=== PATIENT | female | born 1955 | race Caucasian/White ===

== ENCOUNTER 2020-06-07 18:06 | Emergency (ER) | payer OTHER ==
[~2020-06-07] VITALS: Ht 162.6 cm; Wt 63.5 kg
--- NOTE | 2020-06-07 18:15 | NUR ---
PATIENT WHEELCHAIR ASSISTED TO BED 09
--- NOTE | 2020-06-07 18:20 | NUR ---
BP 191/93. DR. SANTOYO MADE AWARE
--- NOTE | 2020-06-07 18:20 | NUR ---
64 Y/O FEMALE BIB SELF C/O LEFT SIDE FACE TINGLING/NUMBNESS AND INABILITY TO PROPERLY SWALLOW X 30 MINUTES. SLIGHT LEFT SIDE FACIAL DROOPING NOTED, SYMMETRICAL BILATERAL STRENGTH NOTED, CLEAR SPEECH. STATES NAUSEA/VOMITING/DIZZINESS. SPO2 99% RA, CLEAR LUNG SOUNDS THROUGHOUT, BREATHING EVEN AND UNLABORED, CLEAR TRACHEAL BREATH SOUNDS. PT CONNECTED TO MONITOR. AO4, SKIN WARM AND DRY. BED IN LOWEST POSITION, LOCKED, X 1 SIDERAIL UP. PMH - RH. ARTHRITIS NKA
--- NOTE | 2020-06-07 18:33 | NUR ---
PT VOMITING AT BEDSIDE
[2020-06-07 18:34] VITALS: BP 191/93
[2020-06-07] MEDS ORDERED: KETOROLAC 30 MG/ML VIAL IVP ONE (18:50)
[2020-06-07] MEDS ORDERED: METOCLOPRAMIDE 10 MG/2 ML INJ VIAL IVP ONE (18:50)
[2020-06-07] MEDS ORDERED: NACL 0.9% 1,000 ML IV ONE (18:50)
--- NOTE | 2020-06-07 19:13 | NUR ---
RECEIVED REPORT FROM JAIDA QUINTANILLA FOR CONTINUITY OF CARE
--- NOTE | 2020-06-07 19:15 | NUR ---
MAGGIE COVID SWAB OBTAINED AND TAKEN TO LAB
[2020-06-07 19:21] LABS: BASOPHILS % (AUTO) 0.1 % (0.0-2.0); EOSINOPHILS % (AUTO) 0.2 % (0.0-4.0); HEMATOCRIT 38.4 % (36-48); HEMOGLOBIN 12.8 g/dL (12.0-16.0); LYMPHOCYTES # (AUTO) 1.9 K/uL (2.5-16.5); MEAN CORPUSCULAR HEMOGLOBIN 31 pg (27-31); MEAN CORPUSCULAR HGB CONC 33 g/dL (33-37); MEAN CORPUSCULAR VOLUME 91.2 fL (80-94); MONOCYTES % (AUTO) 7.2 % (1.7-9.3); NEUTROPHILS # (AUTO) 10.5 K/uL (1.8-7.7); NEUTROPHILS % (AUTO) 78.5 % (42.2-75.2); PLATELET COUNT (AUTO) 313 K/uL (140-450); RED BLOOD CELL COUNT(AUTO) 4.21 MIL/uL (4.20-5.40); RED CELL DISTRIBUTION WIDTH 13.5 % (11.6-13.7); WHITE BLOOD COUNT (AUTO) 13.4 K/uL (4.8-10.8)
[2020-06-07 19:26] LABS: ANION GAP 13.3 (8-16); CARBON DIOXIDE 27.7 mmol/L (21-32); CREATININE 0.7 mg/dL (0.6-1.3)
--- NOTE | 2020-06-07 19:31 | NUR ---
MAGGIE SWAB OBTAINED AND TAKEN TO LAB BY HAYLEY PEREIRA
--- NOTE | 2020-06-07 19:40 | NUR ---
ENDORSEMENT GIVEN TO JAIDA BURCH FOR CONTINUATION OF CARE
--- NOTE | 2020-06-07 19:46 | NUR ---
PT TAKEN TO CT
--- NOTE | 2020-06-07 19:57 | NUR ---
PT IS BACK FROM CT
[2020-06-07 21:30] VITALS: BP 155/89
--- NOTE | 2020-06-07 21:30 | NUR ---
Patient discharged with v/s stable. Written and verbal after care instructions given and explained. Patient verbalized understanding. Ambulatory with steady gait. All questions addressed prior to discharge. Advised to follow up with PMD.
--- NOTE | 2020-06-18 09:24 | NUR ---
LATE ENTRY -- NORMAL SALINE INFUSION COMPLETED AT 201306/07/20
== END 2020-06-07 21:30 | disposition home or self-care (01) ==
LOC: MED 18:06
DX: U07.1 COVID-19 (principal); R11.2 Nausea with vomiting, unspecified
CPT/HCPCS: 36415; 70450; 80048; 84484; 85025; 87426; 93005; 96361; 96374; 96375; 99285; J1885; J2765; J7030